=== PATIENT | female | born 1990 | race Native Hawaiian/Other Pacific Islander ===

== ENCOUNTER 2020-11-02 16:44 | Emergency (ER) | payer OTHER ==
[~2020-11-02] VITALS: Ht 152.4 cm; Wt 86.2 kg
[2020-11-02 16:48] VITALS: TEMP 97.2
[2020-11-02 17:44] LABS: PLATELET COUNT 220 K/uL (152-353)
[2020-11-02 18:07] LABS: POTASSIUM 4.1 mmol/L (3.6-5.2)
[2020-11-02 19:41] VITALS: BP 117/73
== END 2020-11-02 19:41 | disposition home or self-care (01) ==
LOC: ED 16:44
PROVIDERS: Family Medicine
DX: J06.9 Acute upper respiratory infection, unspecified (principal); R05 Cough; Z20.822 Contact with and (suspected) exposure to COVID-19
CPT/HCPCS: 80053; 85027; 87502; 87635; 99283; U0003

== ENCOUNTER 2020-12-02 11:04 | Outpatient (CLI) | payer OTHER | END 2020-12-02 19:37 | disposition home or self-care (01) | LOC: US 11:04 | PROVIDERS: ATTEND Physician Assistant | DX: R22.1 Localized swelling, mass and lump, neck (principal) ==

== ENCOUNTER 2022-11-10 11:32 | Outpatient (CLI) | payer BC | END 2022-11-10 19:41 | disposition home or self-care (01) | LOC: US 11:32 | PROVIDERS: ATTEND Nurse Practitioner | DX: E01.0 Iodine-deficiency related diffuse (endemic) goiter (principal) ==